=== PATIENT | male | born 1965 | race African-American/Black ===

== ENCOUNTER 2023-06-18 07:47 | Emergency (ER) | payer SELFPAY ==
[~2023-06-18] VITALS: Ht 177.8 cm; Wt 73.0 kg
[2023-06-18 08:08] VITALS: O2SAT 98
[2023-06-18 08:41] LABS: CLARITY URINE CLEAR (CLEAR); COLOR URINE YELLOW (YELLOW); GLUCOSE URINE NEGATIVE (NEGATIVE); KETONES URINE NEGATIVE (NEGATIVE); LEUKOCYTE ESTERASE URINE NEGATIVE (NEGATIVE); NITRITE URINE POSITIVE (NEGATIVE); OCCULT BLOOD URINE 3+ (NEGATIVE); PROTEIN URINE NEGATIVE (NEGATIVE); SPECIFIC GRAVITY URINE 1.012 (1.005-1.030); UROBILINOGEN URINE 0.2 E.U./dL (0.2-1.0)
[2023-06-18 09:24] LABS: RBC URINE TNTC /hpf (0-2); SQUAMOUS EPITHELIAL CELL URINE NONE SEEN /lpf (RARE/1+)
[2023-06-18 09:25] LABS: BACTERIA URINE 4+; WBC URINE 0-2 /hpf (0-2)
[2023-06-18] MEDS ORDERED: LEVO250T74 PO (10:07)
[2023-06-18 10:28] VITALS: BP 139/71; PULSE 97; RESP 18; TEMP 97.6
== END 2023-06-18 10:29 | disposition home or self-care (01) ==
LOC: ER 08:30
DX: R33.9 Retention of urine, unspecified (principal); N39.0 Urinary tract infection, site not specified
CPT/HCPCS: 51702; 81003; 99284; A4315

== ENCOUNTER 2023-06-22 10:21 | Emergency (ER) | payer SELFPAY ==
[~2023-06-22] VITALS: Ht 182.9 cm; Wt 79.0 kg
[~2023-06-22 10:21] MED LIST: LEVO250T74 PO
[2023-06-22 10:29] VITALS: BP 127/58; PULSE 101; RESP 20; TEMP 98.5; O2SAT 98
== END 2023-06-22 14:11 | disposition home or self-care (01) ==
LOC: ER 10:21
DX: R33.9 Retention of urine, unspecified (principal)
CPT/HCPCS: 99281

== ENCOUNTER 2023-07-07 04:35 | Emergency (ER) | payer SELFPAY ==
[~2023-07-07] VITALS: Ht 182.9 cm; Wt 82.0 kg
[2023-07-07 05:06] VITALS: O2SAT 99
[2023-07-07 11:20] LABS: BASOPHILS % 0.8 % (0.0-2.0); LYMPHOCYTES % 42.1 % (20.0-50.0); MEAN CORPUSCULAR HEMOGLOBIN 28.8 pg (28.0-32.0); MEAN CORPUSCULAR HGB CONC 34.2 g/dL (31.0-37.0); MEAN PLATELET VOLUME 7.3 fl (7.4-10.4); MONOCYTES % 7.9 % (2.0-8.0); NEUTROPHILS % 48.2 % (40.0-76.0); PLATELET 342 x1000/uL (130-400); RED BLOOD CELL COUNT 4.88 mill/uL (4.7-6.1); RED CELL DISTRIBUTION WIDTH 14.3 % (11.6-14.6); WHITE BLOOD COUNT 4.9 x1000/uL (4.5-11.0)
[2023-07-07 11:39] LABS: ALANINE AMINOTRANSFERASE 33 IU/L (10-49); ALBUMIN 4.5 g/dL (3.2-4.8); ASPARTATE AMINOTRANSFERASE 26 IU/L (<34); BILIRUBIN TOTAL 0.7 mg/dL (0.1-1.0); CALCIUM 9.9 mg/dL (8.7-10.4); CARBON DIOXIDE 30 mEq/L (21-32); CHLORIDE 105 mEq/L (98-107); CREATININE 1.2 mg/dL (0.6-1.3); GLUCOSE 99 mg/dL (70-105); POTASSIUM 4.2 mEq/L (3.5-5.1); PROTEIN TOTAL 7.2 g/dL (6.0-8.3); SODIUM 141 mEq/L (136-145); UREA NITROGEN BLOOD 10 mg/dL (9-23)
[2023-07-07 11:40] LABS: CLARITY URINE CLEAR (CLEAR); COLOR URINE YELLOW (YELLOW); GLUCOSE URINE NEGATIVE (NEGATIVE); KETONES URINE NEGATIVE (NEGATIVE); LEUKOCYTE ESTERASE URINE TRACE (NEGATIVE); NITRITE URINE POSITIVE (NEGATIVE); OCCULT BLOOD URINE TRACE (NEGATIVE); PH URINE 7.5 (4.5-8.0); PROTEIN URINE NEGATIVE (NEGATIVE); SPECIFIC GRAVITY URINE 1.022 (1.005-1.030); UROBILINOGEN URINE 0.2 E.U./dL (0.2-1.0)
[2023-07-07 11:43] LABS: SQUAMOUS EPITHELIAL CELL URINE NONE SEEN /lpf (RARE/1+)
[2023-07-07 12:26] LABS: YEAST URINE NONE SEEN
[2023-07-07 12:27] LABS: BACTERIA URINE FEW
[2023-07-07] MEDS ORDERED: CEPH250C2 MT (13:25)
[2023-07-07 13:34] VITALS: BP 123/85; PULSE 82; RESP 16; TEMP 98.5
== END 2023-07-07 13:35 | disposition home or self-care (01) ==
LOC: ER 04:55
DX: T83.83XA Hemorrhage due to genitourinary prosthetic devices, implants and grafts, initial encounter (principal); N39.0 Urinary tract infection, site not specified; X58.XXXA Exposure to other specified factors, initial encounter; Y93.89 Activity, other specified; Y92.89 Other specified places as the place of occurrence of the external cause; Y99.8 Other external cause status
CPT/HCPCS: 80053; 81003; 85025; 36415; 51702; 99284; Z7610